=== PATIENT | male | born 1950 | race Caucasian/White ===

== ENCOUNTER 2021-10-01 08:25 | Day surgery (SDC) | payer BC ==
--- NOTE | 2021-09-25 11:18 | HP ---
DATE OF SURGERY: 10/01/2021 HISTORY OF PRESENT ILLNESS: The patient presents with complaints of left inguinal area. The patient has some pain and bulging at the site. The patient has soft left inguinal hernia on exam. PAST MEDICAL HISTORY: Hypertension, polycystic kidney disease. PAST SURGICAL HISTORY: Cataract surgery. ALLERGIES: NKDA. MEDICATIONS: Metoprolol, amlodipine, enalapril. FAMILY HISTORY: Heart disease. SOCIAL HISTORY: None reported. REVIEW OF SYSTEMS: CONSTITUTIONAL: Denies fever or chills. CHEST: Denies shortness of breath. CVS: Denies chest pain. ABDOMEN: Reports left inguinal pain. PHYSICAL EXAMINATION: GENERAL: No acute distress. CHEST: Nonlabored. No shortness of breath. CVS: Regular rate and rhythm. ABDOMEN: Soft, reducible left inguinal hernia. IMPRESSION: Symptomatic left inguinal hernia. PLAN: Left inguinal hernia repair with mesh by Dr. Bola Wilson. As dictated by Gypsy Rios NP.
[~2021-10-01 08:25] MED LIST: Lactated Ringers 1,000 ML IV SCH
[2021-10-01] MEDS ORDERED: Lactated Ringers 1,000 ML IV ONE ×2 (08:48→10:42)
[2021-10-01] MEDS ORDERED: CEFAZOLIN 2 GM-D5W BAG** 2 GM/50 ML ML IV ONE (09:31)
[2021-10-01] MEDS ORDERED: CEFAZOLIN 2 GM-D5W BAG** 2 GM/50 ML ML IV SCH (10:00)
[2021-10-01] MEDS ORDERED: Sensorcaine 0.25% 10 ML ONE (10:42)
[2021-10-01] MEDS ORDERED: Decadron 4 MG INJ ONE ×3 (10:58→11:42)
[2021-10-01] MEDS ORDERED: DIPRIVAN 200 MG/20 ML IV ONE ×2 (10:58)
[2021-10-01] MEDS ORDERED: Quelicin Fliptop 200 MG/10 ML ONE ×2 (10:58)
[2021-10-01] MEDS ORDERED: Zofran 4 MG/2 ML VIAL ONE ×2 (10:58)
[2021-10-01] MEDS ORDERED: Xylocaine-Mpf 2% 5 Ml Vial ONE ×2 (10:58)
[2021-10-01] MEDS ORDERED: SUBLIMAZE 100 MCG/2 ML ONE ×2 (10:59→11:56)
[2021-10-01] MEDS ORDERED: Versed 2 MG/2 ML Injection ONE (10:59)
[2021-10-01] MEDS ORDERED: Pre-Attached Lta Kit TP ONE (11:06)
[2021-10-01] MEDS ORDERED: Ephedrine Sulfate 50 MG/ML ONE (11:38)
[2021-10-01] MEDS ORDERED: Naropin 0.5% 30 ML VIAL ONE (11:42)
--- NOTE | 2021-10-01 13:38 | OP ---
SURGERY DATE/TIME: 10/01/2021 1118 PREOPERATIVE DIAGNOSIS: Symptomatic left inguinal hernia. POSTOPERATIVE DIAGNOSIS: Symptomatic left inguinal hernia. PROCEDURE: Left inguinal herniorrhaphy with mesh. SURGEON: Bola Wilson M.D. ANESTHESIA: General. COMPLICATIONS: None. CONDITION: Stable. INDICATION: The patient has symptomatic hernia. DESCRIPTION OF PROCEDURE: Marked preoperatively. The site was fairly lateral. Curvilinear incision. 0.25% Marcaine. Time out had been performed. External oblique opened. Ilioinguinal nerve identified and preserved. Cord skeletonized. A 3 inch indirect hernia sac high ligated under direct visualization with 0 Prolene. The floor was reinforced with 1 x 4 mesh in a Leobardo's ligament type repair. Internal ring one clamp tight. Hemostasis satisfactory. External oblique closed with 0 Vicryl. Ulysses fascia closed with 2-0 Vicryl. Skin closed with 4-0 Vicryl. Sterile dressing applied. The patient tolerated the procedure satisfactorily.
[2021-10-01 14:16] VITALS: O2SAT 95
[2021-10-01 14:29] VITALS: BP 116/74; PULSE 83
== END 2021-10-01 14:05 | disposition home or self-care (01) ==
LOC: SDC 08:25
PROVIDERS: ATTEND Surgery
DX: K40.90 Unilateral inguinal hernia, without obstruction or gangrene, not specified as recurrent (principal); I10 Essential (primary) hypertension; Z79.899 Other long term (current) drug therapy
CPT/HCPCS: 64486; 76942; 93005; 99100; C1781; J0330; J0690; J1100; J2250; J2405; J2704; J2795; J3010